=== PATIENT | male | born 1995 | race Caucasian/White ===

== ENCOUNTER 2017-01-11 06:26 | Observation (INO) | payer OTHER ==
[~2017-01-11] VITALS: Ht 170.2 cm; Wt 61.4 kg
[2017-01-11] MEDS ORDERED: NS 1,000 ML IV ONE (07:15)
[2017-01-11] MEDS ORDERED: ONDANSETRON 4MG/2ML VIAL (J2405) IV ONE (07:15)
[2017-01-11] MEDS: MORPHINE 4 MG/ML 1ML SYRINGE IV PRN ×2 (07:29→11:36)
[2017-01-11 07:40] LABS: BASO # 0.2 K/mm3 (0.0-0.2); BASO % 0.8 % (0.0-1.0); EOS # 0.3 K/mm3 (0.0-0.50); EOS % 1.4 % (0.0-3.0); LARGE UNSTAINED CELL # 0.2 K/mm3 (0.0-0.4); LARGE UNSTAINED CELL % 0.9 % (0.0-4.0); LYMPH % 4.7 % (24.0-44.0); MEAN CORPUSCULAR HGB CONC 35.5 g/dl (32.0-36.5); MEAN CORPUSCULAR VOLUME 90.3 fl (80.0-96.0); MONO # 1.1 K/mm3 (0.0-0.8); MONO % 5.1 % (0.0-5.0); NEUTROPHILS # 17.9 K/mm3 (1.8-7.7); PLATELET COUNT, AUTOMATED 282 k/mm3 (150-450); RED CELL DISTRIBUTION WIDTH 12.2 % (11.5-14.5); WHITE BLOOD COUNT 20.6 K/mm3 (4.0-10.0)
[2017-01-11 08:10] LABS: ALBUMIN 3.7 GM/DL (3.2-5.2); ALBUMIN/GLOBULIN RATIO 0.84 (1.00-1.93); ALKALINE PHOSPHATASE 83 U/L (45-117); ALT/SGPT 20 U/L (12-78); AMYLASE 52 U/L (25-115); ANION GAP 6 MEQ/L (8-16); AST/SGOT 38 U/L (15-37); BILIRUBIN,DIRECT < 0.1 MG/DL (0.0-0.2); BILIRUBIN,TOTAL 0.6 MG/DL (0.2-1.0); BLOOD UREA NITROGEN 15 MG/DL (7-18); CALCIUM LEVEL 8.9 MG/DL (8.5-10.1); CARBON DIOXIDE LEVEL 25 MEQ/L (21-32); CHLORIDE LEVEL 97 MEQ/L (98-107); CREATININE FOR GFR 1.03 MG/DL (0.70-1.30); GLUCOSE, FASTING 104 MG/DL (70-105); POTASSIUM SERUM 4.1 MEQ/L (3.5-5.1); SODIUM LEVEL 128 MEQ/L (136-145); TOTAL PROTEIN 8.1 GM/DL (6.4-8.2)
[2017-01-11] MEDS ORDERED: ISOVUE-370 76% 100ML VIAL (Q9967) As Ordered ONE (08:20)
--- NOTE | 2017-01-11 10:06 | REP ---
CT ABDOMEN/PELVIS WITH IV CONTRAST: TECHNIQUE: Axial contrast enhanced images from the lung bases to the pubic symphysis using 100 mL Isovue 370 intravenous contrast material with multiplanar reformations. Visualized lung bases demonstrate no evidence of acute infiltrate. The liver, spleen, adrenals, pancreas, and kidneys are normal in appearance without no hydronephrosis. The gallbladder is grossly unremarkable. There is no abdominal aortic aneurysm. No significant adenopathy is seen. There is no free air or free fluid. There is no bowel wall thickening. The appendix does not appear to be inflamed. I suspect a 2 mm appendicolith in the distal tip of the appendix. Urinary bladder is not distended and not evaluated. No pelvic mass is seen. IMPRESSION: No CT evidence of appendicitis or other acute finding. There does appear to be a tiny 2 mm calcific appendicolith in the distal appendix. Signed by Bony Bradford MD 01/12/2017 05:48 P
[2017-01-11] MEDS ORDERED: METOCLOPRAMIDE INJ 10MG/2ML VIAL (J2765) IV ONE (11:30)
[2017-01-11] MEDS ORDERED: METOCLOPRAMIDE INJ 10MG/2ML VIAL (J2765) IV PRN (12:15)
[2017-01-11] MEDS ORDERED: MORPHINE 2 MG/ML 1ML SYRINGE IV PRN (12:15)
[2017-01-11] MEDS ORDERED: ONDANSETRON 4MG/2ML VIAL (J2405) IV PRN (12:15)
[2017-01-11] MEDS ORDERED: PROMETHAZINE INJ 25 MG/ML VIAL (J2550) IV PRN (12:15)
[2017-01-11] MEDS ORDERED: MORPHINE 4 MG/ML 1ML SYRINGE IV PRN (12:15)
[2017-01-11] MEDS ORDERED: KETOROLAC 30 MG/ML VIAL (J1885) IV PRN (12:15)
[2017-01-11] MEDS ORDERED: ACETAMINOPHEN TAB 650MG DOSE (2X325MG) PO ONE (12:15)
[2017-01-11] MEDS: PIPERACILLIN/TAZOBACTAM SOD 3.375 GM in D5W MINI-BAG PLUS 50 ML IV SCH ×2 (12:52→18:18)
[2017-01-11 14:00] VITALS: BP 114/53
[2017-01-11] MEDS: LR 1,000 ML IV SCH ×2 (14:02→22:52)
[2017-01-11 16:00] VITALS: BP 110/59
[2017-01-11 20:00] VITALS: BP 95/52
[2017-01-12] VITALS: BP 120/56
[2017-01-12] MEDS: PIPERACILLIN/TAZOBACTAM SOD 3.375 GM in D5W MINI-BAG PLUS 50 ML IV SCH ×2 (00:58→06:32)
[2017-01-12 04:00] VITALS: BP 107/58
[2017-01-12] MEDS: LR 1,000 ML IV SCH (06:32)
[2017-01-12 06:47] LABS: MEAN CORPUSCULAR HEMOGLOBIN 31.5 pg (27.0-33.0); MEAN CORPUSCULAR HGB CONC 34.3 g/dl (32.0-36.5); MEAN CORPUSCULAR VOLUME 91.9 fl (80.0-96.0); RED CELL DISTRIBUTION WIDTH 12.7 % (11.5-14.5); WHITE BLOOD COUNT 12.3 K/mm3 (4.0-10.0)
[2017-01-12 06:55] LABS: ANION GAP 6 MEQ/L (8-16); BLOOD UREA NITROGEN 12 MG/DL (7-18); CALCIUM LEVEL 8.7 MG/DL (8.5-10.1); CARBON DIOXIDE LEVEL 29 MEQ/L (21-32); CHLORIDE LEVEL 99 MEQ/L (98-107); CREATININE FOR GFR 1.06 MG/DL (0.70-1.30); GLUCOSE, FASTING 82 MG/DL (70-105); SODIUM LEVEL 134 MEQ/L (136-145)
[2017-01-12 08:00] VITALS: BP 107/58
[2017-01-12 12:00] VITALS: BP 111/55
--- NOTE | 2017-01-22 19:10 | DSES ---
DATE OF ADMISSION: 01/11/2017 DATE OF DISCHARGE: 01/12/2017 PRINCIPAL DIAGNOSIS: Abdominal pain. ASSOCIATED DIAGNOSIS: None. HISTORY OF PRESENT ILLNESS: The patient is a 21-year-old male who presents with abdominal pain and distension with specifically right lower quadrant pain that started 6-12 hours prior to admission. The patient had an elevated temperature of 101 on admission, elevated white count of 20,000, had a CT scan which revealed no evidence of appendicitis and I was asked to see the patient for possible appendicitis. HOSPITAL COURSE SUMMARY: The patient was admitted with the above diagnosis, was observed overnight, white count dropped down from 20,000 down to 12,000. His pain resolved and he was started on a clear liquid diet and advanced to a regular diet. He was discharged home with the diagnosis of abdominal pain of undetermined etiology, resolved at this time. He was instructed to followup with his primary care provider or followup with myself if he has any ongoing problems with pain, discomfort, nausea, vomiting, gastrointestinal (GI) distress, etc.
--- NOTE | 2017-01-22 19:30 | HPE ---
DATE OF ADMISSION: 01/22/2017 HISTORY OF PRESENT ILLNESS: The patient is a 21-year-old male who developed acute onset of abdominal pain over the last 12 hours prior to admission, which resulted and pain that seemed to be selling much more in the right lower quadrant, was seen emergency room for this abdominal pain, had an elevated white count of 20,000 and clinically the providers felt that the a high chance of possibly have an appendicitis. However, the CT scan showed no evidence of appendicitis. Did have 2 mm appendicolith, but without any inflammation of the bowel around the appendix or the appendix itself. I was asked to see him because of this appendicolith and abdominal pain. PAST MEDICAL HISTORY: Noncontributory. MEDICATIONS: None. ALLERGIES: None. PHYSICAL EXAMINATION: Reveals a 21-year-old male who looks his stated age. HEENT is unremarkable. NECK: Supple without adenopathy. LUNGS: Clear to auscultation without crackles, wheezes or rhonchi. HEART: Regular without murmur. ABDOMEN: Soft, nondistended. He is tender in the suprapubic area, right lower quadrant. but it is mostly with deep palpation. He states his pain is much better since he was first admitted to the ER. There is some guarding without rebound. but this is to deep palpation. It is not specifically in the right lower quadrant. It seems to be much more suprapubic and the appendix is definitely in the right lower quadrant and almost in the pelvis area. But clinically I am not impressed with peritoneal signs in this area and matter of fact after re-examining and while he is in his bed, he seems to have more complaints now in the supraumbilical spot. IMPRESSION AND PLAN: The patient has abdominal pain with fever and elevated white count most likely enteritis of undetermined etiology. At this point, he does not have the classic diarrhea but given his pain and discomfort, will admit him overnight and will observe him. IV fluids have been given and will see how he is pain resolves over the ensuing 12-24 hours. If it does not, we and we may need to reevaluate him with additional studies.
== END 2017-01-12 12:55 | disposition home or self-care (01) ==
LOC: M ED 06:26 → M ED INP 12:14 → M PED 13:47
PROVIDERS: ADMIT Surgery; ATTEND Surgery
DX: R10.31 Right lower quadrant pain (principal); R50.9 Fever, unspecified
CPT/HCPCS: 36415; 74177; 80048; 80076; 81001; 82150; 83690; 85025; 85027; 96365; 96366; 96374; 96375; 96376; 99284; J1885; J2405; J2543; J2765; Q9967